=== PATIENT | female | born 1960 | race Hispanic/Latino ===

== ENCOUNTER → 2024-07-07 | Day surgery (SDC) | payer OTHER ==
[~2024-07-07] MED LIST: ASPIRIN81 MG PO; FENTANYL CITRATE/PF 100MCG/2 ML INJ ONE; GLYCOPYRROLATE INJ 0.2 MG/ML VIAL ONE; LIDOCAINE HCL 2% LOCAL INJ 5 ML SDV VIAL INJ ONE; LIPITOR10 MG PO; MELOXICAM7.5 MG PO; METFORMIN HCL500 MG PO; METHOCARBAMOL750 MG PO; METOPROLOL SUCC50 MG PO; OMEPRAZOLE40 MG PO; PROPOFOL IV EMULSION 10 MG/ML 20 ML VIAL ONE; TYLENOL EXTRA500 MG PO; ZESTRIL10 MG PO
[2024-07-07] MEDS: LACTATED RINGER'S 1,000 ML ONE (10:09)
[2024-07-07 13:08] VITALS: TEMP 97.2
[2024-07-07 13:35] VITALS: BP 122/78; PULSE 56; RESP 16; O2SAT 99
== END | disposition home or self-care (01) ==
LOC: ENDO 09:46
PROVIDERS: ATTEND Internal Medicine Gastroenterology
DX: K22.2 Esophageal obstruction (principal); K29.50 Unspecified chronic gastritis without bleeding; B96.81 Helicobacter pylori [H. pylori] as the cause of diseases classified elsewhere; K20.90 Esophagitis, unspecified without bleeding; K21.9 Gastro-esophageal reflux disease without esophagitis; Z71.3 Dietary counseling and surveillance; I10 Essential (primary) hypertension; Z71.89 Other specified counseling; E78.5 Hyperlipidemia, unspecified; E11.9 Type 2 diabetes mellitus without complications; F41.9 Anxiety disorder, unspecified; Z01.810 Encounter for preprocedural cardiovascular examination; Z79.1 Long term (current) use of non-steroidal anti-inflammatories (NSAID); Z79.82 Long term (current) use of aspirin; Z79.84 Long term (current) use of oral hypoglycemic drugs; Z79.899 Other long term (current) drug therapy; Z68.29 Body mass index [BMI] 29.0-29.9, adult
CPT/HCPCS: 43239; 43450; 93005; J2470; J7121; J2003